=== PATIENT | male | born 1955 | race Caucasian/White ===

== ENCOUNTER 2019-03-14 01:17 | Inpatient (IN) ==
[2019-03-14] MEDS ORDERED: Aspirin 325 MG TABLET PO ONE (01:41)
[2019-03-14 02:09] LABS: Basophils % 0.6 %; Eosinophils # 0.3 K/mcL (0.0-0.6); Hematocrit 38.6 % (37.5-50.1); Hemoglobin 13.8 g/dL (12.9-16.9); Immature Granulocytes % 0.2 % (0-4); Lymphocytes # 1.9 K/mcL (0.6-4.6); Lymphocytes % 30.5 %; Mean Corpuscular HGB Conc 35.8 g/dL (31.6-35.5); Mean Corpuscular Hemoglobin 31.3 pg (28.0-33.3); Mean Corpuscular Volume 87.5 fL (83.0-100.0); Monocytes # 0.7 K/mcL (0.0-1.3); Monocytes % 10.5 %; Neutrophils # 3.4 K/mcL (1.6-8.9); Platelet Count 315 K/mcL (140-400); Red Blood Count 4.41 M/mcL (4.19-5.50); Red Cell Distribution Width 11.1 % (11.5-14.5); Segmented Neutrophils % 54.2 %; White Blood Count 6.3 K/mcL (4.3-11.1)
[2019-03-14 02:31] LABS: BUN/Creatinine Ratio 21 (6-26); Blood Urea Nitrogen 16 mg/dL (8-23); Calcium 9.7 mg/dL (8.6-10.3); Carbon Dioxide 22 mEq/L (23-29); Chloride 105 mEq/L (98-107); Glucose 215 mg/dL (70-105); Osmolality,Calculated 280 (280-300); Potassium 3.4 mEq/L (3.5-5.1); Sodium 131 mEq/L (136-145); eGFR For African Americans > 60 (> 60); eGFR For Non-African Americans > 60 (> 60)
[2019-03-14 02:32] LABS: Troponin I < 0.03 ng/mL (< 0.04)
[2019-03-14] MEDS ORDERED: Potassium Chloride Elixir 20 MEQ/15 ML UDC PO ONE (05:00)
[2019-03-14] MEDS ORDERED: 0.9 % Sodium Chloride 1,000 ML IVC SCH (05:00)
[2019-03-14] MEDS ORDERED: Naloxone 0.4 MG/ML INJ IVP PRN (05:00)
[2019-03-14] MEDS: Nitroglycerin 0.4 MG TAB.SUBL SL PRN ×2 (05:25→15:29)
[2019-03-14] MEDS: *HR* Heparin 5,000 UNIT/ML VIAL SQ SCH ×2 (05:34→18:04)
[2019-03-14] MEDS ORDERED: *HR* Dextrose 50 % in Water (Syg) 50 ML SYRINGE IVP PRN (06:08)
[2019-03-14] MEDS ORDERED: Dextrose Gel 15 GM/37.5 ML TUBE PO PRN ×2 (06:08)
[2019-03-14] MEDS ORDERED: D5% in Water 1,000 ML IVC PRN (06:08)
[2019-03-14 06:57] LABS: INR 1.2; Prothrombin Time 13.1 Seconds (9.4-12.1)
[2019-03-14 07:16] LABS: Albumin 4.1 g/dL (3.5-5.7); Albumin/Globulin Ratio 1.5 (1.1-2.2); Bilirubin,Direct 0.1 mg/dL (0.0-0.2); Bilirubin,Indirect 0.2 mg/dL (0.0-1.0); Bilirubin,Total 0.3 mg/dL (0.3-1.0); Globulin 2.7 g/dL (2.4-3.5); Magnesium 2.1 mg/dL (1.6-2.6); Total Protein 6.8 g/dL (6.4-8.9)
[2019-03-14 07:17] LABS: Chol/HDL Ratio 4.7 (0-4.9); Cholesterol 159 mg/dL (< 200); HDL Cholesterol 34 mg/dL (40-59); LDL Cholesterol,Calculated 105 mg/dL (0-99); Triglycerides 102 mg/dL (< 150); Troponin I < 0.03 ng/mL (< 0.04)
[2019-03-14] MEDS: Metoprolol XL (24 HR) Succ 50 MG TAB.ER.24H PO SCH (08:10)
[2019-03-14] MEDS: amLODIPine 5 MG TABLET PO SCH (08:10)
[2019-03-14] MEDS: Insulin LISPRO 300 UNITS/3 ML VIAL SQ SCH ×3 (08:10→16:27)
[2019-03-14] MEDS ORDERED: hydroCHLOROthiazide 25 MG TABLET PO SCH (09:00)
[2019-03-14 10:02] LABS: Bilirubin,Urine Negative (Negative); Blood,Urine Negative (Negative); Clarity,Urine Clear (Clear); Color,Urine Yellow (Yellow); Glucose,Urine (UA) Normal (Normal); Ketones,Urine Negative (Negative); Leukocyte Esterase,Urine Negative (Negative); Nitrite,Urine Negative (Negative); Protein,Urine Negative (Neg-Trace); Specific Gravity,Urine 1.015 (1.010-1.025); Urobilinogen,Urine Normal (Normal)
[2019-03-14 10:13] LABS: Amphetamine Screen,Urine Negative ng/mL (Cutoff=1000); Barbiturate Screen,Urine Negative ng/mL (Cutoff=200); Benzodiazepines Screen,Urine Negative ng/mL (Cutoff=200); Cannabinoid Screen,Urine Negative ng/mL (Cutoff = 50); Cocaine Screen,Urine Negative ng/mL (Cutoff= 300); Opiate Screen,Urine Negative ng/mL (Cutoff=300); Phencyclidine Screen,Urine Negative ng/mL (Cutoff=25); Sodium, Urine 38.8 mEq/L
[2019-03-14] MEDS: Spironolactone 25 MG TABLET PO SCH (14:58)
[2019-03-14] MEDS: Aspirin Enteric Coated 81 MG Tablet PO SCH (18:03)
[2019-03-15] MEDS: Insulin LISPRO 300 UNITS/3 ML VIAL SQ SCH ×4 (01:41→18:04)
[2019-03-15 02:10] LABS: Alanine Aminotransferase 26 Units/L (7-52); Albumin 3.9 g/dL (3.5-5.7); Albumin/Globulin Ratio 1.6 (1.1-2.2); Alkaline Phosphatase 64 Units/L (34-104); Aspartate Amino Transferase 15 Units/L (13-39); BUN/Creatinine Ratio 17 (6-26); Bilirubin,Total 0.4 mg/dL (0.3-1.0); Blood Urea Nitrogen 13 mg/dL (8-23); Calcium 9.5 mg/dL (8.6-10.3); Carbon Dioxide 25 mEq/L (23-29); Chloride 106 mEq/L (98-107); Globulin 2.5 g/dL (2.4-3.5); Glucose 194 mg/dL (70-105); Magnesium 2.1 mg/dL (1.6-2.6); Osmolality,Calculated 291 (280-300); Phosphorous 2.7 mg/dL (2.7-4.5); Potassium 3.7 mEq/L (3.5-5.1); Sodium 138 mEq/L (136-145); Total Protein 6.4 g/dL (6.4-8.9); eGFR For African Americans > 60 (> 60); eGFR For Non-African Americans > 60 (> 60)
[2019-03-15] MEDS ORDERED: Morphine Sulfate 2 MG/ML SYRINGE IVP ONE (03:28)
[2019-03-15] MEDS: Nitroglycerin 0.4 MG TAB.SUBL SL PRN (03:32)
[2019-03-15 04:26] LABS: Troponin I 0.03 ng/mL (< 0.04)
[2019-03-15] MEDS: *HR* Heparin 5,000 UNIT/ML VIAL SQ SCH ×2 (06:29→18:19)
[2019-03-15] MEDS: hydroCHLOROthiazide 25 MG TABLET PO SCH (08:17)
[2019-03-15] MEDS: Spironolactone 25 MG TABLET PO SCH (08:17)
[2019-03-15] MEDS ORDERED: Regadenoson 0.4 MG/5 ML SYRINGE IVP ONE (08:35)
[2019-03-15] MEDS ORDERED: Isosorbide MONOnitrate (24 HR) 30 MG TAB.ER.24H PO SCH (09:00)
[2019-03-15 10:14] LABS: Estimated Average Glucose 186 mg/dl
[2019-03-15] MEDS: amLODIPine 5 MG TABLET PO SCH (11:37)
[2019-03-15] MEDS: Metoprolol XL (24 HR) Succ 50 MG TAB.ER.24H PO SCH (11:38)
[2019-03-15] MEDS ORDERED: *HR* LORazepam 1 MG TABLET PO ONE (11:41)
[2019-03-15] MEDS ORDERED: *HR* LORazepam 2 MG/ML VIAL IVP PRN (15:21)
[2019-03-15] MEDS: Aspirin Enteric Coated 81 MG Tablet PO SCH (18:19)
[2019-03-16] MEDS: Insulin LISPRO 300 UNITS/3 ML VIAL SQ SCH ×4 (01:52→19:08)
[2019-03-16] MEDS ORDERED: Regadenoson 0.4 MG/5 ML SYRINGE IVP ONE (06:05)
[2019-03-16] MEDS: *HR* Heparin 5,000 UNIT/ML VIAL SQ SCH ×2 (06:15→19:08)
[2019-03-16] MEDS: hydroCHLOROthiazide 25 MG TABLET PO SCH (07:03)
[2019-03-16] MEDS: amLODIPine 5 MG TABLET PO SCH (07:03)
[2019-03-16 07:53] LABS: BUN/Creatinine Ratio 20 (6-26); Blood Urea Nitrogen 16 mg/dL (8-23); Calcium 9.7 mg/dL (8.6-10.3); Carbon Dioxide 26 mEq/L (23-29); Chloride 104 mEq/L (98-107); Glucose 153 mg/dL (70-105); Osmolality,Calculated 288 (280-300); Potassium 3.8 mEq/L (3.5-5.1); Sodium 137 mEq/L (136-145); eGFR For African Americans > 60 (> 60); eGFR For Non-African Americans > 60 (> 60)
[2019-03-16] MEDS: Spironolactone 25 MG TABLET PO SCH (10:13)
[2019-03-16] MEDS: Metoprolol XL (24 HR) Succ 50 MG TAB.ER.24H PO SCH (10:13)
[2019-03-16] MEDS: Nitroglycerin 0.4 MG TAB.SUBL SL PRN ×2 (13:29→13:52)
[2019-03-16] MEDS ORDERED: Spironolactone 25 MG TABLET PO ONE (13:45)
[2019-03-16] MEDS: hydrALAZINE 25 MG TABLET PO SCH ×2 (13:52→18:19)
[2019-03-16] MEDS ORDERED: 0.9 % Sodium Chloride 2,000 ML ONE (15:00)
[2019-03-16] MEDS ORDERED: Heparin 1,000 UNITS/500 mL 500 ML ONE (15:01)
[2019-03-16] MEDS ORDERED: Nitroglycerin 1,000 MCG/10 ML VIAL IV ONE (15:01)
[2019-03-16] MEDS ORDERED: *HR* Heparin 10,000 UNIT/10 ML VIAL ONE (15:01)
[2019-03-16] MEDS ORDERED: ISOVUE-370 200 ML INFUS..BTL ONE (15:01)
[2019-03-16] MEDS ORDERED: *HR* Midazolam HCl 2 MG/2 ML VIAL ONE ×2 (15:26→16:02)
[2019-03-16] MEDS ORDERED: *HR* FentaNYL (PF) 100 MCG/2 ML VIAL ONE (15:27)
[2019-03-16] MEDS ORDERED: Verapamil 5 MG/2 ML VIAL ONE (16:05)
[2019-03-16] MEDS ORDERED: 0.9 % Sodium Chloride 1,000 ML IVC SCH (17:00)
[2019-03-16] MEDS: Aspirin Enteric Coated 81 MG Tablet PO SCH (18:19)
[2019-03-17] MEDS: hydrALAZINE 25 MG TABLET PO SCH ×3 (00:20→17:17)
[2019-03-17] MEDS: *HR* Heparin 5,000 UNIT/ML VIAL SQ SCH ×2 (05:40→17:17)
[2019-03-17 08:34] LABS: Hematocrit 44.9 % (37.5-50.1); Mean Corpuscular Hemoglobin 31.2 pg (28.0-33.3); Mean Corpuscular Volume 89.1 fL (83.0-100.0); Platelet Count 403 K/mcL (140-400); Red Blood Count 5.04 M/mcL (4.19-5.50); Red Cell Distribution Width 11.6 % (11.5-14.5); White Blood Count 7.8 K/mcL (4.3-11.1)
[2019-03-17 08:37] LABS: Hemoglobin 15.7 g/dL (12.9-16.9)
[2019-03-17] MEDS ORDERED: Spironolactone 25 MG TABLET PO SCH (09:00)
[2019-03-17] MEDS: amLODIPine 5 MG TABLET PO SCH (09:03)
[2019-03-17] MEDS: Isosorbide MONOnitrate (24 HR) 30 MG TAB.ER.24H PO SCH (09:03)
[2019-03-17] MEDS: Metoprolol XL (24 HR) Succ 50 MG TAB.ER.24H PO SCH (09:04)
[2019-03-17] MEDS: hydroCHLOROthiazide 25 MG TABLET PO SCH (09:05)
[2019-03-17] MEDS: Insulin LISPRO 300 UNITS/3 ML VIAL SQ SCH ×4 (09:07→20:01)
[2019-03-17 16:28] LABS: Calcium 10.1 mg/dL (8.6-10.3); Potassium 4.1 mEq/L (3.5-5.1)
[2019-03-17] MEDS: Aspirin Enteric Coated 81 MG Tablet PO SCH (17:17)
[2019-03-18] MEDS: hydrALAZINE 25 MG TABLET PO SCH ×3 (00:38→17:42)
[2019-03-18] MEDS: *HR* Heparin 5,000 UNIT/ML VIAL SQ SCH ×2 (05:20→20:06)
[2019-03-18 06:16] LABS: Hematocrit 43.2 % (37.5-50.1); Mean Corpuscular HGB Conc 34.7 g/dL (31.6-35.5); Mean Corpuscular Hemoglobin 31.1 pg (28.0-33.3); Mean Corpuscular Volume 89.4 fL (83.0-100.0); Mean Platelet Volume 9.9 fL (9.4-12.4); Platelet Count 362 K/mcL (140-400); Red Blood Count 4.83 M/mcL (4.19-5.50); Red Cell Distribution Width 11.3 % (11.5-14.5); White Blood Count 8.1 K/mcL (4.3-11.1)
[2019-03-18 06:38] LABS: BUN/Creatinine Ratio 20 (6-26); Blood Urea Nitrogen 20 mg/dL (8-23); Calcium 9.6 mg/dL (8.6-10.3); Carbon Dioxide 24 mEq/L (23-29); Chloride 102 mEq/L (98-107); Glucose 174 mg/dL (70-105); Magnesium 2.1 mg/dL (1.6-2.6); Osmolality,Calculated 285 (280-300); Potassium 4.3 mEq/L (3.5-5.1); Sodium 134 mEq/L (136-145); eGFR For African Americans > 60 (> 60); eGFR For Non-African Americans > 60 (> 60)
[2019-03-18] MEDS ORDERED: Chlorhexidine Rinse 15 ML MOUTHWASH MM SCH (09:00)
[2019-03-18] MEDS: Metoprolol XL (24 HR) Succ 50 MG TAB.ER.24H PO SCH (09:28)
[2019-03-18] MEDS: Isosorbide MONOnitrate (24 HR) 30 MG TAB.ER.24H PO SCH (09:28)
[2019-03-18] MEDS: amLODIPine 5 MG TABLET PO SCH (09:29)
[2019-03-18] MEDS: Insulin LISPRO 300 UNITS/3 ML VIAL SQ SCH ×4 (09:30→20:36)
[2019-03-18] MEDS: Spironolactone 25 MG TABLET PO SCH (12:21)
[2019-03-18] MEDS ORDERED: Aspirin Enteric Coated 81 MG Tablet PO ONE (18:00)
[2019-03-18] MEDS: Chlorhexidine Rinse 15 ML MOUTHWASH MM SCH (22:16)
[2019-03-19] MEDS: hydrALAZINE 25 MG TABLET PO SCH ×3 (01:13→15:49)
[2019-03-19 03:36] LABS: INR 1.1; Prothrombin Time 12.8 Seconds (9.4-12.1)
[2019-03-19 03:44] LABS: Hematocrit 40.7 % (37.5-50.1); Hemoglobin 14.1 g/dL (12.9-16.9); Mean Corpuscular HGB Conc 34.6 g/dL (31.6-35.5); Mean Corpuscular Hemoglobin 31.6 pg (28.0-33.3); Mean Corpuscular Volume 91.3 fL (83.0-100.0); Mean Platelet Volume 9.9 fL (9.4-12.4); Platelet Count 345 K/mcL (140-400); Red Blood Count 4.46 M/mcL (4.19-5.50); Red Cell Distribution Width 11.1 % (11.5-14.5); White Blood Count 8.1 K/mcL (4.3-11.1)
[2019-03-19 03:47] LABS: BUN/Creatinine Ratio 23 (6-26); Blood Urea Nitrogen 18 mg/dL (8-23); Calcium 9.4 mg/dL (8.6-10.3); Carbon Dioxide 24 mEq/L (23-29); Chloride 103 mEq/L (98-107); Glucose 220 mg/dL (70-105); Osmolality,Calculated 287 (280-300); Potassium 4.2 mEq/L (3.5-5.1); Sodium 134 mEq/L (136-145); eGFR For African Americans > 60 (> 60); eGFR For Non-African Americans > 60 (> 60)
[2019-03-19] MEDS ORDERED: CeFAZolin Syr 2,000MG/20 ML 2,000 MG/20 ML SYRINGE IVPB ONE (06:00)
[2019-03-19] MEDS ORDERED: Aspirin 81 MG TAB.CHEW PO ONE (06:00)
[2019-03-19] MEDS: *HR* Heparin 5,000 UNIT/ML VIAL SQ SCH ×2 (06:44→15:50)
[2019-03-19] MEDS: Chlorhexidine Rinse 15 ML MOUTHWASH MM SCH ×2 (06:51→20:38)
[2019-03-19] MEDS: Metoprolol XL (24 HR) Succ 50 MG TAB.ER.24H PO SCH (06:51)
[2019-03-19] MEDS ORDERED: *HR* Rocuronium Bromide 50 MG/5 ML VIAL ONE ×3 (07:22→10:05)
[2019-03-19] MEDS ORDERED: *HR* Midazolam HCl 5 MG/5 ML VIAL IVP ONE (07:22)
[2019-03-19] MEDS ORDERED: *HR* FentaNYL (PF) 1,000 MCG/20 ML VIAL ONE (07:22)
[2019-03-19] MEDS ORDERED: *HR* Propofol 200 MG/20 ML VIAL IVP ONE (07:22)
[2019-03-19] MEDS ORDERED: Dexamethasone 4 MG/ML VIAL ONE (07:23)
[2019-03-19] MEDS ORDERED: Famotidine 20 MG/2 ML VIAL ONE (07:23)
[2019-03-19] MEDS ORDERED: *HR* Magnesium Sulfate 1 GM/2 ML VIAL ONE (07:23)
[2019-03-19] MEDS ORDERED: Lidocaine 2% Syringe 100 MG/5 ML ONE (07:24)
[2019-03-19] MEDS ORDERED: Tranexamic Acid 1,000 MG/10 ML VIAL ONE (07:34)
[2019-03-19] MEDS ORDERED: *HR* PHENYLEPHRINE 1,000 MCG/10 ML SYRINGE IVP ONE (07:37)
[2019-03-19] MEDS ORDERED: Insulin Human Regular 100 UNIT in 0.9 % Sodium Chloride 100 ML IV PRN (08:15)
[2019-03-19] MEDS ORDERED: Norepinephrine 4 MG in 0.9 % Sodium Chloride 250 ML IVC PRN (08:15)
[2019-03-19] MEDS ORDERED: Heparin 15,000 UNIT in 0.9 % Sodium Chloride 500 ML IV ONE (08:15)
[2019-03-19] MEDS ORDERED: Dextrose 50 % in Water (Vial) 30 ML, Sodium Bicarbonate 20 MEQ, Lidocaine 1% 5 ML, Insu... TH ONE ×3 (08:15)
[2019-03-19] MEDS ORDERED: Dextrose 50 % in Water (Vial) 30 ML, Sodium Bicarbonate 20 MEQ, Potassium Chloride 15 M... TH ONE (08:15)
[2019-03-19 08:45] LABS: ABG Base Excess -2 mEq/L (-2 to 3); ABG Chloride 101 mEq/L (98-107); ABG Glucose 198 mg/dL (60-95); ABG HCO3 26 mEq/L (21-27); ABG Ionized Calcium 1.35 mmol/L (1.15-1.35); ABG Oxygen Saturation 96 % (95-98); ABG PCO2 57 mmHg (35-45); ABG PH 7.27 pH Units (7.32-7.45); ABG PO2 96 mmHg (85-104); ABG TCO2 28 mEq/L (20-26)
[2019-03-19] MEDS ORDERED: Calcium Gluconate 1,000 MG/10 ML VIAL ONE (09:33)
[2019-03-19] MEDS ORDERED: Protamine Sulfate 250 MG/25 ML VIAL IVP ONE (09:33)
[2019-03-19 09:56] LABS: ABG Base Excess -2 mEq/L (-2 to 3); ABG Chloride 102 mEq/L (98-107); ABG Glucose 214 mg/dL (60-95); ABG HCO3 23 mEq/L (21-27); ABG Ionized Calcium 1.23 mmol/L (1.15-1.35); ABG Oxygen Saturation 98 % (95-98); ABG PCO2 40 mmHg (35-45); ABG PH 7.38 pH Units (7.32-7.45); ABG PO2 104 mmHg (85-104); ABG TCO2 25 mEq/L (20-26)
[2019-03-19] MEDS ORDERED: niCARdipine 20 MG/200 ML MLS IVC ONE (10:03)
[2019-03-19 10:30] LABS: ABG Base Excess -2 mEq/L (-2 to 3); ABG Chloride 97 mEq/L (98-107); ABG Glucose 249 mg/dL (60-95); ABG HCO3 22 mEq/L (21-27); ABG Ionized Calcium 1.03 mmol/L (1.15-1.35); ABG Oxygen Saturation 100 % (95-98); ABG PCO2 35 mmHg (35-45); ABG PH 7.41 pH Units (7.32-7.45); ABG PO2 487 mmHg (85-104); ABG TCO2 23 mEq/L (20-26)
[2019-03-19] MEDS ORDERED: D5% in Water 250 ML IV BAG IV ONE (10:54)
[2019-03-19] MEDS ORDERED: Heparin 1,000 UNITS/500 mL IV.SOLN IVC ONE (10:54)
[2019-03-19] MEDS ORDERED: Albumin Human 25% 25 GM/100 ML IV.SOLN IV ONE (10:54)
[2019-03-19] MEDS ORDERED: *HR* Heparin 10,000 UNIT/10 ML VIAL IV ONE (10:54)
[2019-03-19] MEDS ORDERED: Mannitol 25% vial 12.5 GM/50 ML VIAL IVP ONE (10:54)
[2019-03-19] MEDS ORDERED: *HR* Magnesium Sulfate 2 GM/50 ML PIGGYBACK IVPB ONE (10:54)
[2019-03-19] MEDS ORDERED: Lidocaine 2% Syringe 100 MG/5 ML IV ONE (10:54)
[2019-03-19] MEDS ORDERED: *HR* Phenylephrine 10 MG/ML VIAL IVC ONE (10:54)
[2019-03-19] MEDS ORDERED: Tranexamic Acid 1,000 MG/10 ML VIAL IVP ONE (10:54)
[2019-03-19 11:14] LABS: ABG Base Excess -1 mEq/L (-2 to 3); ABG Chloride 99 mEq/L (98-107); ABG Glucose 245 mg/dL (60-95); ABG HCO3 23 mEq/L (21-27); ABG Ionized Calcium 1.11 mmol/L (1.15-1.35); ABG Oxygen Saturation 100 % (95-98); ABG PCO2 35 mmHg (35-45); ABG PH 7.43 pH Units (7.32-7.45); ABG PO2 447 mmHg (85-104); ABG TCO2 24 mEq/L (20-26)
[2019-03-19 11:38] LABS: ABG Base Excess 1 mEq/L (-2 to 3); ABG Chloride 100 mEq/L (98-107); ABG Glucose 236 mg/dL (60-95); ABG HCO3 25 mEq/L (21-27); ABG Ionized Calcium 1.14 mmol/L (1.15-1.35); ABG Oxygen Saturation 100 % (95-98); ABG PCO2 38 mmHg (35-45); ABG PH 7.42 pH Units (7.32-7.45); ABG PO2 392 mmHg (85-104); ABG TCO2 26 mEq/L (20-26)
[2019-03-19] MEDS ORDERED: *HR* FentaNYL (PF) 250 MCG/5 ML VIAL ONE (12:00)
[2019-03-19 12:21] LABS: ABG Base Excess -3 mEq/L (-2 to 3); ABG Chloride 101 mEq/L (98-107); ABG Glucose 236 mg/dL (60-95); ABG HCO3 22 mEq/L (21-27); ABG Ionized Calcium 1.38 mmol/L (1.15-1.35); ABG Oxygen Saturation 100 % (95-98); ABG PCO2 39 mmHg (35-45); ABG PH 7.36 pH Units (7.32-7.45); ABG PO2 278 mmHg (85-104); ABG TCO2 23 mEq/L (20-26)
[2019-03-19] MEDS ORDERED: Ondansetron 4 MG/2 ML VIAL ONE (12:36)
[2019-03-19 12:52] LABS: ABG Base Excess -4 mEq/L (-2 to 3); ABG Chloride 103 mEq/L (98-107); ABG Glucose 224 mg/dL (60-95); ABG HCO3 22 mEq/L (21-27); ABG Ionized Calcium 1.26 mmol/L (1.15-1.35); ABG Oxygen Saturation 97 % (95-98); ABG PCO2 39 mmHg (35-45); ABG PH 7.35 pH Units (7.32-7.45); ABG PO2 99 mmHg (85-104); ABG TCO2 23 mEq/L (20-26)
[2019-03-19] MEDS ORDERED: Insulin Regular, Human 100 UNIT/ML IV PRN (13:11)
[2019-03-19] MEDS ORDERED: Calcium Gluconate 1gm/50mL 1 GM/50 ML BAG IVPB PRN (13:11)
[2019-03-19] MEDS ORDERED: Ondansetron 4 MG/2 ML VIAL IVP PRN (13:11)
[2019-03-19] MEDS ORDERED: Acetaminophen 650 MG RECTAL SUPP RC PRN (13:11)
[2019-03-19] MEDS ORDERED: *HR* Dextrose 50 % in Water (Syg) 50 ML SYRINGE IVP PRN (13:11)
[2019-03-19] MEDS ORDERED: Acetaminophen 325 MG TABLET PO PRN (13:11)
[2019-03-19] MEDS ORDERED: Potassium Chloride 40 MEQ/200 ML BAG IVPB PRN (13:11)
[2019-03-19] MEDS: niCARdipine 20 MG in 0.9 % Sodium Chloride 192 ML IVC SCH ×2 (13:15→20:01)
[2019-03-19] MEDS ORDERED: 0.9 % Sodium Chloride w KCl 20 MEQ/1,000 ML MLS IVC SCH (13:15)
[2019-03-19] MEDS: Insulin Human Regular 100 UNIT in 0.9 % Sodium Chloride 100 ML IVC SCH (13:15)
[2019-03-19] MEDS ORDERED: *HR* LORazepam 2 MG/ML VIAL IVP PRN (13:20)
[2019-03-19 13:33] LABS: ABG Base Excess -3 mEq/L (-2 to 3); ABG HCO3 23 mEq/L (21-27); ABG Oxygen Saturation 100 % (95-98); ABG PCO2 41 mmHg (35-45); ABG PH 7.35 pH Units (7.32-7.45); ABG PO2 172 mmHg (85-104); ABG TCO2 24 mEq/L (20-26); Blood Gas Modality ASSIST CONTROL; Blood Gas VT 550 cc
[2019-03-19] MEDS: Norepinephrine 4 MG in 0.9 % Sodium Chloride 250 ML IVC SCH (13:45)
[2019-03-19] MEDS: *HR* FentaNYL (PF) 100 MCG/2 ML VIAL IVP PRN (13:56)
[2019-03-19 13:57] LABS: Mean Platelet Volume 9.9 fL (9.4-12.4)
[2019-03-19 13:59] LABS: Hemoglobin 13.2 g/dL (12.9-16.9); Mean Corpuscular HGB Conc 34.7 g/dL (31.6-35.5); Mean Corpuscular Hemoglobin 31.9 pg (28.0-33.3); Mean Corpuscular Volume 91.8 fL (83.0-100.0); Platelet Count 239 K/mcL (140-400); Red Blood Count 4.14 M/mcL (4.19-5.50); Red Cell Distribution Width 11.1 % (11.5-14.5)
[2019-03-19] MEDS: Pantoprazole 40 MG VIAL IVP SCH (14:01)
[2019-03-19 14:02] LABS: White Blood Count 31.1 K/mcL (4.3-11.1)
[2019-03-19 14:08] LABS: INR 1.5
[2019-03-19] MEDS ORDERED: Dexmedetomidine HCl 400 MCG/100 ML MLS IVC ONE (14:10)
[2019-03-19 14:11] LABS: Activated Partial Thrombo Time 27.8 Seconds (26.0-36.0)
[2019-03-19 14:13] LABS: BUN/Creatinine Ratio 17 (6-26); Blood Urea Nitrogen 15 mg/dL (8-23); Calcium 8.4 mg/dL (8.6-10.3); Carbon Dioxide 23 mEq/L (23-29); Chloride 106 mEq/L (98-107); Glucose 237 mg/dL (70-105); Magnesium 2.7 mg/dL (1.6-2.6); Osmolality,Calculated 289 (280-300); Potassium 3.9 mEq/L (3.5-5.1); Sodium 135 mEq/L (136-145); eGFR For African Americans > 60 (> 60); eGFR For Non-African Americans > 60 (> 60)
[2019-03-19] MEDS: Dexmedetomidine HCl 400 MCG/100 ML MLS IVC SCH ×2 (14:15→20:28)
[2019-03-19] MEDS: Insulin LISPRO 300 UNITS/3 ML VIAL SQ SCH (14:26)
[2019-03-19] MEDS: amLODIPine 5 MG TABLET PO SCH (14:27)
[2019-03-19] MEDS: Isosorbide MONOnitrate (24 HR) 30 MG TAB.ER.24H PO SCH (14:27)
[2019-03-19] MEDS: Spironolactone 25 MG TABLET PO SCH (14:27)
[2019-03-19 14:45] LABS: Lymphocytes # 3.1 K/mcL (0.6-4.6); Monocytes # 1.6 K/mcL (0.0-1.3); Neutrophils # 26.4 K/mcL (1.6-8.9); Platelet Estimate Normal (Normal)
[2019-03-19] MEDS ORDERED: 0.9 % Sodium Chloride 250 ML ONE (16:58)
[2019-03-19 18:07] LABS: ABG Base Excess -3 mEq/L (-2 to 3); ABG HCO3 22 mEq/L (21-27); ABG Oxygen Saturation 99 % (95-98); ABG PCO2 35 mmHg (35-45); ABG PO2 128 mmHg (85-104); ABG TCO2 23 mEq/L (20-26); Blood Gas Modality ASSIST CONTROL; Blood Gas VT 550 cc
[2019-03-19] MEDS: Metoclopramide 10 MG/2 ML VIAL IVP SCH ×2 (18:33→23:42)
[2019-03-19] MEDS: Ketorolac 15 MG/ML VIAL IVP SCH ×2 (18:33→23:42)
[2019-03-19] MEDS: *HR* OxyCODONE/APAP 5/325 TABLET PO PRN ×2 (18:33→22:45)
[2019-03-19 20:05] LABS: ABG Base Excess -3 mEq/L (-2 to 3); ABG HCO3 20 mEq/L (21-27); ABG Oxygen Saturation 94 % (95-98); ABG PCO2 31 mmHg (35-45); ABG PH 7.42 pH Units (7.32-7.45); ABG PO2 67 mmHg (85-104); ABG TCO2 21 mEq/L (20-26); Blood Gas Modality CPAP/PS; Blood Gas Pressure Support 8 cm H2O
[2019-03-20] MEDS: Insulin Human Regular 100 UNIT in 0.9 % Sodium Chloride 100 ML IVC SCH
[2019-03-20] MEDS: *HR* FentaNYL (PF) 100 MCG/2 ML VIAL IVP PRN ×5 (00:13→18:54)
[2019-03-20] MEDS: niCARdipine 20 MG in 0.9 % Sodium Chloride 192 ML IVC SCH ×2 (01:00→07:56)
[2019-03-20] MEDS: Dexmedetomidine HCl 400 MCG/100 ML MLS IVC SCH ×2 (02:06→05:48)
[2019-03-20] MEDS: *HR* OxyCODONE/APAP 5/325 TABLET PO PRN ×4 (03:10→20:46)
[2019-03-20 04:59] LABS: INR 1.5; Prothrombin Time 16.6 Seconds (9.4-12.1)
[2019-03-20 05:02] LABS: Activated Partial Thrombo Time 29.5 Seconds (26.0-36.0)
[2019-03-20 05:08] LABS: Basophils % 0.1 %; Hematocrit 31.8 % (37.5-50.1); Immature Granulocytes % 0.4 % (0-4); Lymphocytes # 1.5 K/mcL (0.6-4.6); Lymphocytes % 7.7 %; Mean Corpuscular Hemoglobin 31.7 pg (28.0-33.3); Mean Corpuscular Volume 93.3 fL (83.0-100.0); Mean Platelet Volume 10.2 fL (9.4-12.4); Monocytes # 1.9 K/mcL (0.0-1.3); Monocytes % 10.2 %; Neutrophils # 15.4 K/mcL (1.6-8.9); Platelet Count 181 K/mcL (140-400); Red Blood Count 3.41 M/mcL (4.19-5.50); Red Cell Distribution Width 11.5 % (11.5-14.5); Segmented Neutrophils % 81.6 %; White Blood Count 18.8 K/mcL (4.3-11.1)
[2019-03-20 05:21] LABS: Hemoglobin 10.8 g/dL (12.9-16.9)
[2019-03-20 05:31] LABS: BUN/Creatinine Ratio 25 (6-26); Blood Urea Nitrogen 20 mg/dL (8-23); Calcium 8.6 mg/dL (8.6-10.3); Carbon Dioxide 22 mEq/L (23-29); Chloride 106 mEq/L (98-107); Glucose 104 mg/dL (70-105); Magnesium 2.4 mg/dL (1.6-2.6); Osmolality,Calculated 283 (280-300); Potassium 4.9 mEq/L (3.5-5.1); Sodium 135 mEq/L (136-145); eGFR For African Americans > 60 (> 60); eGFR For Non-African Americans > 60 (> 60)
[2019-03-20] MEDS: Ketorolac 15 MG/ML VIAL IVP SCH ×4 (05:37→23:24)
[2019-03-20] MEDS: Metoclopramide 10 MG/2 ML VIAL IVP SCH ×4 (05:37→23:24)
[2019-03-20] MEDS: *HR* Heparin 5,000 UNIT/ML VIAL SQ SCH ×2 (05:40→16:42)
[2019-03-20] MEDS: Chlorhexidine Rinse 15 ML MOUTHWASH MM SCH ×2 (09:18→20:17)
[2019-03-20] MEDS: Furosemide 20 MG/2 ML VIAL IVP SCH ×2 (09:19→20:18)
[2019-03-20] MEDS: Pantoprazole 40 MG VIAL IVP SCH (09:19)
[2019-03-20] MEDS: Aspirin Enteric Coated 81 MG Tablet PO SCH (09:20)
[2019-03-20] MEDS: Spironolactone 25 MG TABLET PO SCH (09:45)
[2019-03-20] MEDS ORDERED: niCARdipine 40 MG/200 ML MLS IVC ONE (11:00)
[2019-03-20] MEDS ORDERED: Dextrose Gel 15 GM/37.5 ML TUBE PO PRN ×2 (13:42)
[2019-03-20] MEDS ORDERED: D5% in Water 1,000 ML IVC PRN (13:42)
[2019-03-20] MEDS ORDERED: *HR* Dextrose 50 % in Water (Syg) 50 ML SYRINGE IVP PRN (13:42)
[2019-03-20] MEDS: Insulin LISPRO 300 UNITS/3 ML VIAL SQ SCH ×2 (16:48→20:18)
[2019-03-20] MEDS ORDERED: Aspirin Enteric Coated 81 MG Tablet PO SCH (18:00)
[2019-03-20] MEDS: Norepinephrine 4 MG in 0.9 % Sodium Chloride 250 ML IVC SCH (20:20)
[2019-03-20] MEDS ORDERED: 0.9 % Sodium Chloride 500 ML ONE (23:36)
[2019-03-21] MEDS: *HR* OxyCODONE/APAP 5/325 TABLET PO PRN (03:48)
[2019-03-21 05:31] LABS: Basophils % 0.2 %; Eosinophils % 0.1 %; Hemoglobin 10.6 g/dL (12.9-16.9); Immature Granulocytes % 0.6 % (0-4); Lymphocytes # 2.8 K/mcL (0.6-4.6); Lymphocytes % 16.3 %; Mean Corpuscular HGB Conc 34.2 g/dL (31.6-35.5); Mean Corpuscular Hemoglobin 31.3 pg (28.0-33.3); Mean Corpuscular Volume 91.4 fL (83.0-100.0); Monocytes # 2.2 K/mcL (0.0-1.3); Neutrophils # 11.9 K/mcL (1.6-8.9); Platelet Count 204 K/mcL (140-400); Red Blood Count 3.39 M/mcL (4.19-5.50); Red Cell Distribution Width 11.9 % (11.5-14.5); Segmented Neutrophils % 69.8 %
[2019-03-21] MEDS: *HR* Heparin 5,000 UNIT/ML VIAL SQ SCH ×2 (05:40→18:23)
[2019-03-21] MEDS: Metoclopramide 10 MG/2 ML VIAL IVP SCH ×3 (05:40→18:23)
[2019-03-21] MEDS: niCARdipine 20 MG in 0.9 % Sodium Chloride 192 ML IVC SCH (05:40)
[2019-03-21] MEDS: Ketorolac 15 MG/ML VIAL IVP SCH ×3 (05:40→18:23)
[2019-03-21 05:43] LABS: BUN/Creatinine Ratio 33 (6-26); Blood Urea Nitrogen 26 mg/dL (8-23); Calcium 8.9 mg/dL (8.6-10.3); Carbon Dioxide 22 mEq/L (23-29); Chloride 101 mEq/L (98-107); Glucose 218 mg/dL (70-105); Magnesium 2.3 mg/dL (1.6-2.6); Osmolality,Calculated 285 (280-300); Potassium 4.5 mEq/L (3.5-5.1); Sodium 132 mEq/L (136-145); eGFR For African Americans > 60 (> 60); eGFR For Non-African Americans > 60 (> 60)
[2019-03-21] MEDS: Aspirin Enteric Coated 81 MG Tablet PO SCH (07:33)
[2019-03-21] MEDS: Pantoprazole 40 MG VIAL IVP SCH (07:33)
[2019-03-21] MEDS: Chlorhexidine Rinse 15 ML MOUTHWASH MM SCH ×2 (07:33→21:19)
[2019-03-21] MEDS: Furosemide 20 MG/2 ML VIAL IVP SCH ×2 (07:34→21:19)
[2019-03-21] MEDS: Insulin LISPRO 300 UNITS/3 ML VIAL SQ SCH ×4 (07:35→21:23)
[2019-03-21] MEDS: *HR* FentaNYL (PF) 100 MCG/2 ML VIAL IVP PRN (08:00)
[2019-03-21] MEDS ORDERED: *HR* FentaNYL (PF) 100 MCG/2 ML VIAL IVP PRN (09:52)
[2019-03-21] MEDS ORDERED: Levalbuterol 1 PUFF INHALER IH SCH (12:00)
[2019-03-21] MEDS ORDERED: Levalbuterol Neb 1.25 MG/3 ML ONE (12:09)
[2019-03-21] MEDS: Levalbuterol Neb 1.25 MG/3 ML AER SCH ×2 (17:26→21:55)
[2019-03-21] MEDS: amLODIPine 5 MG TABLET PO SCH (18:24)
[2019-03-22] MEDS: Metoclopramide 10 MG/2 ML VIAL IVP SCH ×4 (00:05→18:09)
[2019-03-22] MEDS: Ketorolac 15 MG/ML VIAL IVP SCH ×5 (00:05→23:05)
[2019-03-22] MEDS: niCARdipine 20 MG in 0.9 % Sodium Chloride 192 ML IVC SCH ×3 (00:22→08:12)
[2019-03-22 04:12] LABS: Basophils % 0.3 %; Eosinophils # 0.1 K/mcL (0.0-0.6); Eosinophils % 0.8 %; Hematocrit 28.4 % (37.5-50.1); Hemoglobin 9.6 g/dL (12.9-16.9); Immature Granulocytes % 0.7 % (0-4); Lymphocytes # 1.8 K/mcL (0.6-4.6); Lymphocytes % 14.6 %; Mean Corpuscular HGB Conc 33.8 g/dL (31.6-35.5); Mean Corpuscular Hemoglobin 30.7 pg (28.0-33.3); Mean Corpuscular Volume 90.7 fL (83.0-100.0); Mean Platelet Volume 10.5 fL (9.4-12.4); Monocytes # 1.4 K/mcL (0.0-1.3); Monocytes % 10.9 %; Neutrophils # 9.1 K/mcL (1.6-8.9); Platelet Count 216 K/mcL (140-400); Red Blood Count 3.13 M/mcL (4.19-5.50); Red Cell Distribution Width 11.6 % (11.5-14.5); Segmented Neutrophils % 72.7 %; White Blood Count 12.5 K/mcL (4.3-11.1)
[2019-03-22] MEDS: Levalbuterol Neb 1.25 MG/3 ML AER SCH ×4 (04:16→21:09)
[2019-03-22 04:30] LABS: BUN/Creatinine Ratio 34 (6-26); Blood Urea Nitrogen 30 mg/dL (8-23); Calcium 8.8 mg/dL (8.6-10.3); Carbon Dioxide 23 mEq/L (23-29); Chloride 102 mEq/L (98-107); Glucose 275 mg/dL (70-105); Osmolality,Calculated 290 (280-300); Potassium 4.4 mEq/L (3.5-5.1); Sodium 132 mEq/L (136-145); eGFR For African Americans > 60 (> 60); eGFR For Non-African Americans > 60 (> 60)
[2019-03-22] MEDS: *HR* Heparin 5,000 UNIT/ML VIAL SQ SCH ×2 (05:26→18:08)
[2019-03-22] MEDS: Insulin LISPRO 300 UNITS/3 ML VIAL SQ SCH ×5 (08:14→20:11)
[2019-03-22] MEDS: Norepinephrine 4 MG in 0.9 % Sodium Chloride 250 ML IVC SCH ×2 (08:14→15:44)
[2019-03-22] MEDS: Aspirin Enteric Coated 81 MG Tablet PO SCH (08:25)
[2019-03-22] MEDS: Furosemide 20 MG/2 ML VIAL IVP SCH ×2 (08:25→20:00)
[2019-03-22] MEDS: Pantoprazole 40 MG VIAL IVP SCH (08:25)
[2019-03-22] MEDS: amLODIPine 5 MG TABLET PO SCH (08:25)
[2019-03-22] MEDS: Chlorhexidine Rinse 15 ML MOUTHWASH MM SCH ×2 (08:25→19:56)
[2019-03-22] MEDS: hydrALAZINE 25 MG TABLET PO SCH ×2 (08:29→17:51)
[2019-03-22] MEDS: Spironolactone 25 MG TABLET PO SCH (10:59)
[2019-03-22] MEDS: Diltiazem CD (24hr) 300 MG CAPSULE PO SCH (11:01)
[2019-03-22] MEDS: *HR* OxyCODONE/APAP 5/325 TABLET PO PRN (19:58)
[2019-03-22] MEDS ORDERED: Perflutren Lipid Microsphere 1.3 ML in 0.9 % Sodium Chloride 8.7 ML IVP ONE (20:49)
[2019-03-22] MEDS ORDERED: Metoprolol 100 MG TABLET PO SCH (21:00)
[2019-03-23] MEDS: Levalbuterol Neb 1.25 MG/3 ML AER SCH ×4 (03:14→21:11)
[2019-03-23] MEDS: *HR* Heparin 5,000 UNIT/ML VIAL SQ SCH ×2 (05:58→19:12)
[2019-03-23] MEDS: Ketorolac 15 MG/ML VIAL IVP SCH ×4 (05:58→23:42)
[2019-03-23] MEDS: Diltiazem CD (24hr) 300 MG CAPSULE PO SCH (08:32)
[2019-03-23] MEDS: Aspirin Enteric Coated 81 MG Tablet PO SCH (08:33)
[2019-03-23] MEDS: Chlorhexidine Rinse 15 ML MOUTHWASH MM SCH ×2 (08:46→20:10)
[2019-03-23] MEDS: Insulin LISPRO 300 UNITS/3 ML VIAL SQ SCH ×4 (09:17→20:14)
[2019-03-23] MEDS ORDERED: Insulin DETEMIR 100 UNIT/ML X5UNITS SQ SCH (11:49)
[2019-03-23] MEDS ORDERED: Isovue-370 500 ML BOTTLE IVP ONE (15:11)
[2019-03-23] MEDS ORDERED: Acetaminophen 325 MG TABLET PO PRN (16:55)
[2019-03-23] MEDS ORDERED: Nitroglycerin 0.4 MG TAB.SUBL SL PRN (16:55)
[2019-03-23] MEDS ORDERED: Naloxone 0.4 MG/ML INJ IVP PRN (16:55)
[2019-03-23] MEDS ORDERED: Ondansetron 4 MG/2 ML VIAL IVP PRN (16:55)
[2019-03-23] MEDS ORDERED: *HR* Dextrose 50 % in Water (Syg) 50 ML SYRINGE IVP PRN (16:55)
[2019-03-23] MEDS ORDERED: D5% in Water 1,000 ML IVC PRN (16:55)
[2019-03-23] MEDS ORDERED: Dextrose Gel 15 GM/37.5 ML TUBE PO PRN ×2 (16:55)
[2019-03-24 01:20] LABS: Basophils % 0.5 %; Eosinophils # 0.3 K/mcL (0.0-0.6); Eosinophils % 3.7 %; Hematocrit 27.5 % (37.5-50.1); Hemoglobin 9.3 g/dL (12.9-16.9); Immature Granulocytes % 1.2 % (0-4); Lymphocytes # 1.9 K/mcL (0.6-4.6); Lymphocytes % 21.4 %; Mean Corpuscular HGB Conc 33.8 g/dL (31.6-35.5); Mean Corpuscular Volume 94.5 fL (83.0-100.0); Mean Platelet Volume 10.1 fL (9.4-12.4); Monocytes % 11.4 %; Neutrophils # 5.4 K/mcL (1.6-8.9); Platelet Count 255 K/mcL (140-400); Red Blood Count 2.91 M/mcL (4.19-5.50); Red Cell Distribution Width 11.8 % (11.5-14.5); Segmented Neutrophils % 61.8 %; White Blood Count 8.7 K/mcL (4.3-11.1)
[2019-03-24 01:43] LABS: BUN/Creatinine Ratio 21 (6-26); Blood Urea Nitrogen 20 mg/dL (8-23); Calcium 9.1 mg/dL (8.6-10.3); Carbon Dioxide 24 mEq/L (23-29); Chloride 106 mEq/L (98-107); Glucose 143 mg/dL (70-105); Osmolality,Calculated 289 (280-300); Potassium 4.1 mEq/L (3.5-5.1); Sodium 137 mEq/L (136-145); eGFR For African Americans > 60 (> 60); eGFR For Non-African Americans > 60 (> 60)
[2019-03-24] MEDS: Levalbuterol Neb 1.25 MG/3 ML AER SCH ×2 (04:02→09:36)
[2019-03-24] MEDS: *HR* Heparin 5,000 UNIT/ML VIAL SQ SCH ×2 (05:23→18:11)
[2019-03-24] MEDS: Ketorolac 15 MG/ML VIAL IVP SCH ×3 (05:23→18:10)
[2019-03-24] MEDS: Chlorhexidine Rinse 15 ML MOUTHWASH MM SCH ×2 (09:50→19:44)
[2019-03-24] MEDS: Aspirin Enteric Coated 81 MG Tablet PO SCH (09:50)
[2019-03-24] MEDS: Diltiazem CD (24hr) 300 MG CAPSULE PO SCH (09:51)
[2019-03-24] MEDS: Insulin LISPRO 300 UNITS/3 ML VIAL SQ SCH ×4 (09:51→19:45)
[2019-03-24] MEDS: Insulin DETEMIR 100 UNIT/ML X5UNITS SQ SCH (09:54)
[2019-03-24] MEDS: Levalbuterol 1 PUFF INHALER IH SCH ×2 (16:36→21:31)
[2019-03-25] MEDS: Levalbuterol 1 PUFF INHALER IH SCH ×4 (03:18→21:13)
[2019-03-25] MEDS: *HR* Heparin 5,000 UNIT/ML VIAL SQ SCH ×2 (05:57→17:49)
[2019-03-25] MEDS: *HR* OxyCODONE/APAP 5/325 TABLET PO PRN ×2 (05:58→17:49)
[2019-03-25] MEDS: Diltiazem CD (24hr) 300 MG CAPSULE PO SCH (08:34)
[2019-03-25] MEDS: Chlorhexidine Rinse 15 ML MOUTHWASH MM SCH ×2 (08:34→20:10)
[2019-03-25] MEDS: Aspirin Enteric Coated 81 MG Tablet PO SCH (08:34)
[2019-03-25] MEDS: Insulin LISPRO 300 UNITS/3 ML VIAL SQ SCH ×4 (08:35→20:10)
[2019-03-25] MEDS: Insulin DETEMIR 100 UNIT/ML X5UNITS SQ SCH (08:44)
[2019-03-25] MEDS: hydroCHLOROthiazide 25 MG TABLET PO SCH (08:44)
[2019-03-25] MEDS: *HR* LORazepam 2 MG/ML VIAL IVP PRN (08:47)
[2019-03-26 01:10] LABS: Basophils # 0.1 K/mcL (0.0-0.2); Basophils % 0.7 %; Eosinophils # 0.4 K/mcL (0.0-0.6); Eosinophils % 3.9 %; Hematocrit 30.3 % (37.5-50.1); Hemoglobin 10.4 g/dL (12.9-16.9); Immature Granulocytes % 2.3 % (0-4); Lymphocytes # 1.5 K/mcL (0.6-4.6); Lymphocytes % 16.8 %; Mean Corpuscular HGB Conc 34.3 g/dL (31.6-35.5); Mean Corpuscular Volume 90.4 fL (83.0-100.0); Mean Platelet Volume 9.3 fL (9.4-12.4); Monocytes % 11.3 %; Neutrophils # 5.9 K/mcL (1.6-8.9); Platelet Count 387 K/mcL (140-400); Red Blood Count 3.35 M/mcL (4.19-5.50); Red Cell Distribution Width 11.6 % (11.5-14.5); White Blood Count 9.1 K/mcL (4.3-11.1)
[2019-03-26 01:23] LABS: BUN/Creatinine Ratio 20 (6-26); Blood Urea Nitrogen 17 mg/dL (8-23); Calcium 8.8 mg/dL (8.6-10.3); Carbon Dioxide 25 mEq/L (23-29); Chloride 102 mEq/L (98-107); Glucose 189 mg/dL (70-105); Osmolality,Calculated 283 (280-300); Potassium 4.2 mEq/L (3.5-5.1); Sodium 133 mEq/L (136-145); eGFR For African Americans > 60 (> 60); eGFR For Non-African Americans > 60 (> 60)
[2019-03-26] MEDS: Levalbuterol 1 PUFF INHALER IH SCH ×4 (03:47→22:19)
[2019-03-26] MEDS: *HR* Heparin 5,000 UNIT/ML VIAL SQ SCH ×2 (06:09→17:59)
[2019-03-26] MEDS: Chlorhexidine Rinse 15 ML MOUTHWASH MM SCH ×2 (08:33→20:39)
[2019-03-26] MEDS: Insulin DETEMIR 100 UNIT/ML X5UNITS SQ SCH (08:33)
[2019-03-26] MEDS: Aspirin Enteric Coated 81 MG Tablet PO SCH (08:34)
[2019-03-26] MEDS: hydroCHLOROthiazide 25 MG TABLET PO SCH (08:34)
[2019-03-26] MEDS: Diltiazem CD (24hr) 300 MG CAPSULE PO SCH (08:34)
[2019-03-26] MEDS: Insulin LISPRO 300 UNITS/3 ML VIAL SQ SCH ×4 (08:39→20:40)
[2019-03-26] MEDS: *HR* LORazepam 2 MG/ML VIAL IVP PRN (17:59)
[2019-03-27] MEDS: Levalbuterol 1 PUFF INHALER IH SCH ×4 (03:54→21:56)
[2019-03-27] MEDS: *HR* Heparin 5,000 UNIT/ML VIAL SQ SCH ×2 (06:04→17:11)
[2019-03-27] MEDS: Diltiazem CD (24hr) 300 MG CAPSULE PO SCH (08:02)
[2019-03-27] MEDS: hydroCHLOROthiazide 25 MG TABLET PO SCH (08:02)
[2019-03-27] MEDS: Aspirin Enteric Coated 81 MG Tablet PO SCH (08:02)
[2019-03-27] MEDS: Chlorhexidine Rinse 15 ML MOUTHWASH MM SCH ×2 (08:03→20:22)
[2019-03-27] MEDS: Insulin DETEMIR 100 UNIT/ML X5UNITS SQ SCH (08:08)
[2019-03-27] MEDS: *HR* LORazepam 2 MG/ML VIAL IVP PRN ×2 (08:08→20:21)
[2019-03-27] MEDS: Insulin LISPRO 300 UNITS/3 ML VIAL SQ SCH ×4 (08:10→20:28)
[2019-03-28] MEDS: Levalbuterol 1 PUFF INHALER IH SCH ×4 (04:46→21:16)
[2019-03-28] MEDS: *HR* Heparin 5,000 UNIT/ML VIAL SQ SCH ×2 (05:43→17:29)
[2019-03-28] MEDS: Chlorhexidine Rinse 15 ML MOUTHWASH MM SCH ×2 (08:34→19:54)
[2019-03-28] MEDS: Insulin DETEMIR 100 UNIT/ML X5UNITS SQ SCH (08:35)
[2019-03-28] MEDS: hydroCHLOROthiazide 25 MG TABLET PO SCH (08:35)
[2019-03-28] MEDS: Diltiazem CD (24hr) 300 MG CAPSULE PO SCH (08:35)
[2019-03-28] MEDS: Aspirin Enteric Coated 81 MG Tablet PO SCH (08:35)
[2019-03-28] MEDS: Insulin LISPRO 300 UNITS/3 ML VIAL SQ SCH ×4 (08:38→20:08)
[2019-03-28] MEDS: *HR* LORazepam 2 MG/ML VIAL IVP PRN (19:54)
[2019-03-29] MEDS: Levalbuterol 1 PUFF INHALER IH SCH ×4 (04:01→21:11)
[2019-03-29] MEDS: *HR* Heparin 5,000 UNIT/ML VIAL SQ SCH ×2 (06:15→16:41)
[2019-03-29] MEDS: hydroCHLOROthiazide 25 MG TABLET PO SCH (07:36)
[2019-03-29] MEDS: Diltiazem CD (24hr) 300 MG CAPSULE PO SCH (07:36)
[2019-03-29] MEDS: Aspirin Enteric Coated 81 MG Tablet PO SCH (07:37)
[2019-03-29] MEDS: Insulin DETEMIR 100 UNIT/ML X5UNITS SQ SCH (07:37)
[2019-03-29] MEDS: Chlorhexidine Rinse 15 ML MOUTHWASH MM SCH ×2 (07:37→20:46)
[2019-03-29] MEDS: Insulin LISPRO 300 UNITS/3 ML VIAL SQ SCH ×4 (07:40→20:38)
[2019-03-29] MEDS: *HR* OxyCODONE/APAP 5/325 TABLET PO PRN (22:20)
[2019-03-30] MEDS: Levalbuterol 1 PUFF INHALER IH SCH ×2 (04:21→10:32)
[2019-03-30] MEDS: *HR* Heparin 5,000 UNIT/ML VIAL SQ SCH (05:46)
[2019-03-30] MEDS: Aspirin Enteric Coated 81 MG Tablet PO SCH (08:03)
[2019-03-30] MEDS: Diltiazem CD (24hr) 300 MG CAPSULE PO SCH (08:03)
[2019-03-30] MEDS: Chlorhexidine Rinse 15 ML MOUTHWASH MM SCH (08:04)
[2019-03-30] MEDS: hydroCHLOROthiazide 25 MG TABLET PO SCH (08:04)
[2019-03-30] MEDS: Insulin DETEMIR 100 UNIT/ML X5UNITS SQ SCH (08:05)
[2019-03-30] MEDS: Insulin LISPRO 300 UNITS/3 ML VIAL SQ SCH ×2 (08:05→12:21)
[2019-03-30 11:54] VITALS: BP 133/82
== END 2019-03-30 15:27 | DRG 233 ==
LOC: 2ANU 01:17 → EMEROOARM 01:17 → SUATTDRO 04:32 → 2ANU 04:57 → ICNU 03-19 10:39 → 2NNU 03-24 18:46
PROVIDERS: ADMIT Internal Medicine; ATTEND Internal Medicine

== ENCOUNTER 2019-05-18 09:13 | Inpatient (IN) ==
[~2019-05-18 09:13] MED LIST: ceFAZolin 1,000 MG, Sodium Chloride IRRigation 1,000 ML IR ONE
[2019-05-18] MEDS ORDERED: *HR* Phenylephrine 10 MG/ML VIAL ONE (09:37)
[2019-05-18] MEDS ORDERED: *HR* FentaNYL (PF) 100 MCG/2 ML VIAL ONE ×2 (09:37→14:04)
[2019-05-18] MEDS ORDERED: *HR* Propofol 200 MG/20 ML VIAL IVP ONE ×2 (09:37→14:41)
[2019-05-18] MEDS ORDERED: *HR* Rocuronium Bromide 50 MG/5 ML VIAL ONE (09:37)
[2019-05-18] MEDS ORDERED: Ondansetron 4 MG/2 ML VIAL ONE (09:37)
[2019-05-18] MEDS ORDERED: Lidocaine -MPF 4% 5 ML AMPUL ONE (09:37)
[2019-05-18] MEDS ORDERED: Dexamethasone 4 MG/ML VIAL ONE ×2 (09:37)
[2019-05-18] MEDS ORDERED: *HR* Succinylcholine 200 MG/10 ML VIAL IVP ONE (09:37)
[2019-05-18] MEDS ORDERED: *HR* Midazolam HCl 2 MG/2 ML VIAL ONE (09:37)
[2019-05-18] MEDS ORDERED: Lidocaine -MPF 2% 2 ML VIAL ONE ×2 (09:37→14:18)
[2019-05-18] MEDS ORDERED: CeFAZolin Syr 2,000MG/20 ML 2,000 MG/20 ML SYRINGE IVPB ONE (09:39)
[2019-05-18] MEDS ORDERED: Ringers Solution, Lactated 1,000 ML IVC SCH (09:45)
[2019-05-18] MEDS ORDERED: Ondansetron 4 MG/2 ML VIAL IVP ONE (10:11)
[2019-05-18] MEDS ORDERED: *HR* OxyCODONE Immed Rel 5 MG TABLET PO PRN (10:11)
[2019-05-18] MEDS ORDERED: *HR* HYDROmorphone PF 0.5 MG/0.5 ML SYRINGE IVP PRN (10:11)
[2019-05-18] MEDS ORDERED: *HR* Labetalol 20 MG/4 ML SYRINGE IVP PRN (10:11)
[2019-05-18] MEDS ORDERED: Acetaminophen IV 1,000 MG/100 ML INFUS..BTL IVPB ONE (10:11)
[2019-05-18] MEDS ORDERED: Albuterol 2.5 MG/3 ML NEBULIZER IH PRN (10:11)
[2019-05-18] MEDS ORDERED: *HR* Promethazine 25 MG/ML VIAL IVP PRN (10:11)
[2019-05-18] MEDS ORDERED: Heparin 1,000 UNITS/500 mL 500 ML ONE (10:55)
[2019-05-18] MEDS ORDERED: Lidocaine 1% 20 ML MDV ONE (10:55)
[2019-05-18] MEDS ORDERED: Protamine Sulfate 50 MG/5 ML VIAL IVP ONE (10:56)
[2019-05-18] MEDS ORDERED: NiCARdipine 2.5 MG/10 ML Syringe IVPB ONE (10:57)
[2019-05-18] MEDS ORDERED: *HR* Vasopressin 20 UNIT/ML VIAL ONE (10:57)
[2019-05-18] MEDS ORDERED: *HR* Remifentanil 1 MG VIAL IVP ONE (11:31)
[2019-05-18] MEDS ORDERED: EPHEDrine 50 MG/ML VIAL ONE (11:48)
[2019-05-18] MEDS ORDERED: *HR* Atropine Sulfate 8 MG/20 ML VIAL IVP ONE (12:20)
[2019-05-18] MEDS ORDERED: Ondansetron 4 MG/2 ML VIAL IVP PRN (15:59)
[2019-05-18] MEDS ORDERED: Nitroglycerin 0.4 MG TAB.SUBL SL PRN (15:59)
[2019-05-18] MEDS ORDERED: Naloxone 0.4 MG/ML INJ IVP PRN (15:59)
[2019-05-18] MEDS: GlipiZIDE 5 MG TABLET PO SCH (17:20)
[2019-05-18] MEDS ORDERED: Aspirin Enteric Coated 81 MG Tablet PO SCH (18:00)
[2019-05-18] MEDS: ceFAZolin 2,000 MG in 0.9 % Sodium Chloride 100 ML IVPB SCH (20:08)
[2019-05-18] MEDS: Metoprolol XL (24 HR) Succ 25 MG TAB.ER.24H PO SCH (20:08)
[2019-05-18] MEDS ORDERED: Ibuprofen 600 MG TABLET PO PRN (21:41)
[2019-05-19] MEDS: ceFAZolin 2,000 MG in 0.9 % Sodium Chloride 100 ML IVPB SCH ×2 (03:23→11:15)
[2019-05-19 03:43] LABS: Hematocrit 34.7 % (37.5-50.1); Hemoglobin 11.4 g/dL (12.9-16.9); Immature Granulocytes % 0.4 % (0-4); Lymphocytes # 1.3 K/mcL (0.6-4.6); Lymphocytes % 10.8 %; Mean Corpuscular HGB Conc 32.9 g/dL (31.6-35.5); Mean Corpuscular Hemoglobin 30.1 pg (28.0-33.3); Mean Corpuscular Volume 91.6 fL (83.0-100.0); Mean Platelet Volume 10.2 fL (9.4-12.4); Monocytes # 0.7 K/mcL (0.0-1.3); Monocytes % 5.5 %; Neutrophils # 10.2 K/mcL (1.6-8.9); Platelet Count 293 K/mcL (140-400); Red Blood Count 3.79 M/mcL (4.19-5.50); Red Cell Distribution Width 11.9 % (11.5-14.5); Segmented Neutrophils % 83.3 %; White Blood Count 12.2 K/mcL (4.3-11.1)
[2019-05-19 03:54] LABS: BUN/Creatinine Ratio 28 (6-26); Blood Urea Nitrogen 27 mg/dL (8-23); Calcium 9.2 mg/dL (8.6-10.3); Carbon Dioxide 22 mEq/L (23-29); Chloride 106 mEq/L (98-107); Glucose 213 mg/dL (70-105); Osmolality,Calculated 289 (280-300); Potassium 4.3 mEq/L (3.5-5.1); Sodium 134 mEq/L (136-145); eGFR For African Americans > 60 (> 60); eGFR For Non-African Americans > 60 (> 60)
[2019-05-19] MEDS: Metoprolol XL (24 HR) Succ 25 MG TAB.ER.24H PO SCH (08:28)
[2019-05-19] MEDS: GlipiZIDE 5 MG TABLET PO SCH (08:28)
[2019-05-19] MEDS ORDERED: Magnesium Oxide 400 MG TABLET PO SCH (09:00)
[2019-05-19] MEDS ORDERED: amLODIPine 5 MG TABLET PO SCH (09:00)
[2019-05-19] MEDS ORDERED: NON-FORMULARY MEDICATION 1 EACH EACH (Omega-3/Dha/Epa/Fish Oil [Omega 3 500 Softgel] 1 CAP PO SCH (09:00)
[2019-05-19] MEDS ORDERED: Multivit/Ca/Min/Fe/FA 1 TAB TABLET PO SCH (09:00)
[2019-05-19] MEDS ORDERED: Loratadine 10 MG TABLET PO SCH (09:00)
[2019-05-19] MEDS ORDERED: Cholecalciferol (D-3) 1,000 UNIT (25MCG) TABLET PO SCH (09:00)
[2019-05-19 11:23] VITALS: BP 119/59
== END 2019-05-19 14:08 | disposition home or self-care (01) | DRG 39 ==
LOC: SAMDAY 09:13 → 2NNU 16:00
PROVIDERS: ADMIT Surgery Vascular Surgery; ATTEND Surgery Vascular Surgery